=== PATIENT | female | born 1990 | race American Indian/Alaskan Native ===

== ENCOUNTER 2020-01-02 14:29 | Emergency (ER) | payer SELFPAY ==
--- NOTE | 2020-01-02 16:42 | Emergency Department Report ---
<KARINA ODOM - Last Filed: 01/03/20 10:39> ED General Adult HPI - General Chief complaint: Psych Stated complaint: MH EVAL Time Seen by Provider: 01/02/20 16:16 - Related Data Previous Rx's Medication Instructions Recorded Last Taken Type FLUoxetine [PROzac] 20 mg PO QDAY #30 capsule 01/03/20 Unknown Rx Mirtazapine [Remeron 15mg TAB] 15 mg PO HS #30 tablet 01/03/20 Unknown Rx Allergies Allergy/AdvReac Type Severity Reaction Status Date / Time No Known Allergies Allergy Unverified 01/02/20 14:33 ED Past Medical Hx - Medications Home Medications: Home Medications Medication Instructions Recorded Confirmed Last Taken Type FLUoxetine [PROzac] 20 mg PO QDAY #30 capsule 01/03/20 Unknown Rx Mirtazapine [Remeron 15mg TAB] 15 mg PO HS #30 tablet 01/03/20 Unknown Rx ED Medical Decision Making - Lab Data Result diagrams: 01/02/20 16:49 01/02/20 16:49 - Medical Decision Making Patient was seen by her psychiatrist Dr. Juarez and his 1013 is been rescinded. Medications have been recommended. Patient is expressing no homicidal suicidal ideations at this time and likely is just having issues with depression. ED Disposition Clinical Impression: Medical clearance for psychiatric admission, Depressed affect Disposition: DC-01 TO HOME OR SELFCARE Is pt being admited?: No Does the pt Need Aspirin: No Condition: Good Instructions: Depression (ED) Prescriptions: FLUoxetine [PROzac] 20 mg PO QDAY #30 capsule Mirtazapine [Remeron 15mg TAB] 15 mg PO HS #30 tablet Referrals: PRIMARY CARE, [Primary Care Provider] - 3-5 Days Time of Disposition: 10:41 <THUY LIU - Last Filed: 01/03/20 17:22> ED General Adult HPI - General Source: patient, RN notes reviewed Mode of arrival: Ambulatory Limitations: No Limitations - History of Present Illness Initial comments: The patient states that she has no risk factors for coronavirus. Given the entire history and physical examination, I am biomedical photographer and escorted by ER outdoor emergency care technician Eli The patient is a 29-year-old female. She states that she is not . She presents to the emergency room today with a complaint of painless request for mental health evaluation. She states "I just do not want to be here." She does not endorse overdose. She personally does not have access to guns or to firearms. The patient states she has been feeling like this for months and 3 years. Her symptoms not acutely worsened or different today. She is not experiencing hallucinations. She does not want to harm other people. She consumes marijuana on a frequent basis, but denies ingestion of other recreational drugs. She states that her symptoms of emotional lassitude have been constant for months and years. She does not describe exacerbating, relieving factors. -: week(s), month(s), year(s) Consistency: constant Improves with: other Worsens with: other ED Review of Systems ROS: Stated complaint: MH EVAL Other details as noted in HPI Constitutional: denies: fever Eyes: denies: eye discharge ENT: denies: epistaxis, congestion Respiratory: denies: cough Cardiovascular: denies: syncope Gastrointestinal: denies: abdominal pain Genitourinary: denies: dysuria Musculoskeletal: denies: back pain Skin: as per HPI Neurological: as per HPI Psychiatric: as per HPI. denies: homicidal thoughts Hematological/Lymphatic: as per HPI ED Past Medical Hx - Past Medical History Hx Asthma: Yes - Surgical History Past Surgical History?: No - Social History Smoking Status: Current Every Day Smoker Substance Use Type: Alcohol ED Physical Exam - General Limitations: No Limitations General appearance: alert, in no apparent distress - Head Head exam: Present: atraumatic, normocephalic - Eye Eye exam: Present: normal appearance, EOMI. Absent: nystagmus - ENT ENT exam: Present: normal exam, normal orophraynx, mucous membranes moist, normal external ear exam - Neck Neck exam: Present: normal inspection, full ROM. Absent: tenderness, meningismus - Respiratory Respiratory exam: Present: normal lung sounds bilaterally. Absent: respiratory distress - Cardiovascular Cardiovascular Exam: Present: regular rate, normal rhythm, normal heart sounds. Absent: bradycardia, tachycardia, irregular rhythm, systolic murmur, diastolic murmur, rubs, gallop - GI/Abdominal GI/Abdominal exam: Present: soft, normal bowel sounds. Absent: distended, tenderness, guarding, rebound, rigid, pulsatile mass - Extremities Exam Extremities exam: Present: normal inspection, full ROM. Absent: pedal edema, calf tenderness - Back Exam Back exam: Present: normal inspection, full ROM. Absent: tenderness, CVA tenderness (R), CVA tenderness (L), paraspinal tenderness, vertebral tenderness - Neurological Exam Neurological exam: Present: alert, oriented X3 - Psychiatric Psychiatric exam: Present: depressed, anxious. Absent: homicidal ideation - Skin Skin exam: Present: warm, dry, intact, normal color. Absent: rash ED Course Vital Signs 01/02/20 01/02/20 01/02/20 14:33 16:30 20:20 Temperature 97.5 F L 98.7 F Pulse Rate 101 H 84 Respiratory 20 16 16 Rate Blood Pressure 147/81 Blood Pressure 123/80 [Left] O2 Sat by Pulse 99 84 Oximetry 01/03/20 01/03/20 01/03/20 02:14 08:08 11:07 Temperature 98.3 F 98.9 F Pulse Rate 60 90 Respiratory 16 15 18 Rate Blood Pressure Blood Pressure 118/79 127/92 [Left] O2 Sat by Pulse 99 100 Oximetry - Reevaluation(s) Reevaluation #1: 01/02/20 17:05 Differential diagnosis, including but not limited to: Mood disorder, dysthymia, requesting mental health evaluation Assessment and plan: 29-year-old female, who is clinically sober at this time, GCS of 15, with no physical pain or acute medical complaint, presenting with a primary request for psychiatric intervention/therapy. The patient has been feeling dysthymic for months and for years, and states that for "years" she has "not wanted to be here." Her symptoms are not necessarily different today. The patient is calm and cooperative. Screening laboratory studies ordered. Psyc hiatric consultation ordered. Reevaluation #2: 01/02/20 17:51 Laboratory studies unremarkable for emergent condition at this time as expected. At the moment, the patient does not appear to have an immediate medical contraindication to psychiatric admission, evaluation, and consultation. If psychiatric team recommends outpatient follow-up as I anticipate, patient is s uitable for discharge medically. Reevaluation #3: 01/02/20 20:18 Patient pending formal psychiatric evaluation tomorrow morning, as per the following documentation by the mental health green material value added assessor: 01/02/20 20:19 Recommendations: Remote Sensing Technician briefed case with attending psychiatrist Dr. Juarez, who confirmed that psych consult will be completed tomorrow, 01/02. ED Medical Decision Making - Lab Data Result diagrams: 01/02/20 16:49 01/02/20 16:49 Vital Signs 01/02/20 01/02/20 14:33 16:30 Temperature 97.5 F L Pulse Rate 101 H Respiratory 20 16 Rate Blood Pressure 147/81 O2 Sat by Pulse 99 Oximetry Lab Results 01/02/20 Range/Units 16:49 WBC 8.6 (4.5-11.0) K/mm3 RBC 4.45 (3.65-5.03) M/mm3 Hgb 13.4 (10.1-14.3) gm/dl Hct 39.9 (30.3-42.9) % MCV 90 (79-97) fl MCH 30 (28-32) pg MCHC 33 (30-34) % RDW 13.8 (13.2-15.2) % Plt Count 224 (140-440) K/mm3 Vital Signs 01/02/20 01/02/20 14:33 16:30 Temperature 97.5 F L Pulse Rate 101 H Respiratory 20 16 Rate Blood Pressure 147/81 O2 Sat by Pulse 99 Oximetry Lab Results 01/02/20 01/02/20 01/02/20 Range/Units 16:49 16:49 16:49 WBC 8.6 (4.5-11.0) K/mm3 RBC 4.45 (3.65-5.03) M/mm3 Hgb 13.4 (10.1-14.3) gm/dl Hct 39.9 (30.3-42.9) % MCV 90 (79-97) fl MCH 30 (28-32) pg MCHC 33 (30-34) % RDW 13.8 (13.2-15.2) % Plt Count 224 (140-440) K/mm3 Sodium 140 (137-145) mmol/L Potassium 3.6 (3.6-5.0) mmol/L Chloride 102.4 (98-107) mmol/L Carbon Dioxide 23 (22-30) mmol/L Anion Gap 18 mmol/L BUN 13 (7-17) mg/dL Creatinine 0.8 (0.7-1.2) mg/dL Estimated GFR > 60 ml/min BUN/Creatinine Ratio 16 % Glucose 84 (65-100) mg/dL Calcium 10.2 (8.4-10.2) mg/dL Magnesium 2.10 (1.7-2.3) mg/dL Total Bilirubin 0.40 (0.1-1.2) mg/dL AST 17 (5-40) units/L ALT 7 (7-56) units/L Alkaline Phosphatase 60 (35-129) units/L Total Creatine Kinase 79 (30-135) units/L Total Protein 8.0 (6.3-8.2) g/dL Albumin 4.6 (3.9-5) g/dL Albumin/Globulin Ratio 1.4 % HCG, Quant < 2 (0-4) mIU/mL Urine Color (Yellow) Urine Turbidity (Clear) Urine pH (5.0-7.0) Ur Specific [place] (1.003-1.030) Urine Protein (Negative) mg/dL Urine Glucose (UA) (Negative) mg/dL Urine Ketones (Negative) mg/dL Urine Blood (Negative) Urine Nitrite (Negative) Urine Bilirubin (Negative) Urine Urobilinogen (<2.0) mg/dL Ur Leukocyte Esterase (Negative) Urine WBC (Auto) (0.0-6.0) /HPF Urine RBC (Auto) (0.0-6.0) /HPF U Epithel Cells (Auto) (0-13.0) /HPF Urine Mucus /HPF Salicylates (2.8-20.0) mg/dL Urine Opiates Screen Urine Methadone Screen Acetaminophen (10.0-30.0) ug/mL Ur Barbiturates Screen Ur Phencyclidine Scrn Ur Amphetamines Screen U Benzodiazepines Scrn Urine Cocaine Screen U Marijuana (THC) Screen Plasma/Serum Alcohol (0-0.07) % 01/02/20 01/02/20 01/02/20 Range/Units 16:49 16:49 16:49 WBC (4.5-11.0) K/mm3 RBC (3.65-5.03) M/mm3 Hgb (10.1-14.3) gm/dl Hct (30.3-42.9) % MCV (79-97) fl MCH (28-32) pg MCHC (30-34) % RDW (13.2-15.2) % Plt Count (140-440) K/mm3 Sodium (137-145) mmol/L Potassium (3.6-5.0) mmol/L Chloride (98-107) mmol/L Carbon Dioxide (22-30) mmol/L Anion Gap mmol/L BUN (7-17) mg/dL Creatinine (0.7-1.2) mg/dL Estimated GFR ml/min BUN/Creatinine Ratio % Glucose (65-100) mg/dL Calcium (8.4-10.2) mg/dL Magnesium (1.7-2.3) mg/dL Total Bilirubin (0.1-1.2) mg/dL AST (5-40) units/L ALT (7-56) units/L Alkaline Phosphatase (35-129) units/L Total Creatine Kinase (30-135) units/L Total Protein (6.3-8.2) g/dL Albumin (3.9-5) g/dL Albumin/Globulin Ratio % HCG, Quant (0-4) mIU/mL Urine Color (Yellow) Urine Turbidity (Clear) Urine pH (5.0-7.0) Ur Specific [place] (1.003-1.030) Urine Protein (Negative) mg/dL Urine Glucose (UA) (Negative) mg/dL Urine Ketones (Negative) mg/dL Urine Blood (Negative) Urine Nitrite (Negative) Urine Bilirubin (Negative) Urine Urobilinogen (<2.0) mg/dL Ur Leukocyte Esterase (Negative) Urine WBC (Auto) (0.0-6.0) /HPF Urine RBC (Auto) (0.0-6.0) /HPF U Epithel Cells (Auto) (0-13.0) /HPF Urine Mucus /HPF Salicylates < 0.3 L (2.8-20.0) mg/dL Urine Opiates Screen Urine Methadone Screen Acetaminophen < 5.0 L (10.0-30.0) ug/mL Ur Barbiturates Screen Ur Phencyclidine Scrn Ur Amphetamines Screen U Benzodiazepines Scrn Urine Cocaine Screen U Marijuana (THC) Screen Plasma/Serum Alcohol < 0.01 (0-0.07) % 01/02/20 01/02/20 Range/Units 16:52 16:52 WBC (4.5-11.0) K/mm3 RBC (3.65-5.03) M/mm3 Hgb (10.1-14.3) gm/dl Hct (30.3-42.9) % MCV (79-97) fl MCH (28-32) pg MCHC (30-34) % RDW (13.2-15.2) % Plt Count (140-440) K/mm3 Sodium (137-145) mmol/L Potassium (3.6-5.0) mmol/L Chloride (98-107) mmol/L Carbon Dioxide (22-30) mmol/L Anion Gap mmol/L BUN (7-17) mg/dL Creatinine (0.7-1.2) mg/dL Estimated GFR ml/min BUN/Creatinine Ratio % Glucose (65-100) mg/dL Calcium (8.4-10.2) mg/dL Magnesium (1.7-2.3) mg/dL Total Bilirubin (0.1-1.2) mg/dL AST (5-40) units/L ALT (7-56) units/L Alkaline Phosphatase (35-129) units/L Total Creatine Kinase (30-135) units/L Total Protein (6.3-8.2) g/dL Albumin (3.9-5) g/dL Albumin/Globulin Ratio % HCG, Quant (0-4) mIU/mL Urine Color Yellow (Yellow) Urine Turbidity Clear (Clear) Urine pH 6.0 (5.0-7.0) Ur Specific [place] 1.025 (1.003-1.030) Urine Protein 30 mg/dl (Negative) mg/dL Urine Glucose (UA) Neg (Negative) mg/dL Urine Ketones Tr (Negative) mg/dL Urine Blood Mod (Negative) Urine Nitrite Neg (Negative) Urine Bilirubin Neg (Negative) Urine Urobilinogen 4.0 (<2.0) mg/dL Ur Leukocyte Esterase Neg (Negative) Urine WBC (Auto) 5.0 (0.0-6.0) /HPF Urine RBC (Auto) 85.0 (0.0-6.0) /HPF U Epithel Cells (Auto) < 1.0 (0-13.0) /HPF Urine Mucus 3+ /HPF Salicylates (2.8-20.0) mg/dL Urine Opiates Screen Presumptive negative Urine Methadone Screen Presumptive negative Acetaminophen (10.0-30.0) ug/mL Ur Barbiturates Screen Presumptive negative Ur Phencyclidine Scrn Presumptive negative Ur Amphetamines Screen Presumptive negative U Benzodiazepines Scrn Presumptive negative Urine Cocaine Screen Presumptive negative U Marijuana (THC) Screen Presumptive positive Plasma/Serum Alcohol (0-0.07) % Critical care attestation.: If time is entered above; I have spent that time in minutes in the direct care of this critically ill patient, excluding procedure time. ED Disposition Is pt being admited?: No Does the pt Need Aspirin: No
[2020-01-02 17:05] LABS: Hematocrit 39.9 % (30.3-42.9); Hemoglobin 13.4 gm/dl (10.1-14.3); Mean Corpuscular HGB Conc 33 % (30-34); Mean Corpuscular Volume 90 fl (79-97); Platelet Count 224 K/mm3 (140-440); Red Blood Count 4.45 M/mm3 (3.65-5.03); Red Cell Distribution Width 13.8 % (13.2-15.2)
[2020-01-02 17:10] LABS: Bilirubin,Urine NEG (Negative); Blood,Urine MOD (Negative); Color,Urine Yellow (Yellow); Mucus,Urine 3+ /HPF
[2020-01-02 17:17] LABS: Amphetamine Screen,Urine PRESUMPTIVE NEGATIVE; Benzodiazepines Screen,Urine PRESUMPTIVE NEGATIVE; Cocaine Screen,Urine PRESUMPTIVE NEGATIVE; Methadone Screen,Urine PRESUMPTIVE NEGATIVE; Opiate Screen,Urine PRESUMPTIVE NEGATIVE
[2020-01-02 17:25] LABS: Alanine Aminotransferase 7 units/L (7-56); Albumin 4.6 g/dL (3.9-5); BUN/Creatinine Ratio 16; Blood Urea Nitrogen 13 mg/dL (7-17); Calcium 10.2 mg/dL (8.4-10.2); Hemolysis Index 6
[2020-01-02 17:28] LABS: Cannabinoid Screen,Urine PRESUMPTIVE POSITIVE
[2020-01-02 17:33] LABS: HCG Qualitative,Urine Negative (Negative)
--- NOTE | 2020-01-03 09:58 | Consultation ---
History of Present Illness - Reason for Consult Consult date: 01/03/20 Reason for consult: Psych eval - Chief Complaint Chief complaint: Depressed - History of Present Psychiatric Illness The patient is a 29yo single unemployed female with no psych history. She presents with depressed mood. Per ED provider's note: The patient is a 29-year-old female. She states that she is not . She presents to the emergency room today with a complaint of painless request for mental health evaluation. She states "I just do not want to be here." She does not endorse overdose. She personally does not have access to guns or to firearms. The patient states she has been feeling like this for months and 3 years. Her symptoms not acutely worsened or different today. She is not experiencing hallucinations. She does not want to harm other people. She consumes marijuana on a frequent basis, but denies ingestion of other recreational drugs. In my interview with the patient this morning, she reports feeling depressed for years, she has decreased appetite and decreased sleep. Patient denies panic attacks, recurrent nightmares or flashbacks. Patient denies symptoms suggestive of OCD or PTSD. Patient denies hallucinations, paranoia, thought interference and no features suggestive of hypomania or nathaniel. She completely denies suicidal or homicidal thoughts. PAST PSYCHIATRIC HISTORY: None PAST MEDICAL HISTORY: None Family Psychiatric History Mother has bipolar, per patient SOCIAL HISTORY Marital Status: Single Living Arrangements: alone Employment Status: unemployed Access to guns/weapons: Patient denies Education: High School History of Abuse: Patient denies Legal History: Patient denies ROS: Constitutional: Negative for weight loss ENT: Negative for stridor Respiratory: Negative for cough or hemoptysis All other systems reviewed and are negative MENTAL STATUS General Appearance and Behavior: age appropriate, good eye contact, cooperative with questioning and polite Cooperation: Cooperative Psychomotor Behavior: within normal limits Mood: depressed Affect and affective range: Congruent with stated mood Thought Process: Fluent/Logical and Goal-directed Thought Content: Within reality Speech: Normal volume and Regular rate and rhythm Intellectual Functioning Average Suicidal Ideation: Denies SI Homicidal Ideation: Denies HI Impulse Control: intact Insight and Judgment: normal insight and judgment Memory: Normal Attention: Normal Orientation: alert and oriented Diagnosis: Major depressive disorder single episode moderate RECOMMENDATIONS MEDICATIONS: Fluoxetine 20mg qd and Remeron 15mg qhs Risks, benefits and alternatives of medications discussed with the patient, questions answered and consent obtained from patient. PSYCHOTHERAPY: Supportive psychotherapy provided MEDICAL: Per primary team RADIATION / CHEMISTRY TECHNICIAN: No DISPOSITION: Per primary team, no indication for acute inpatient psychiatric hospitalization at this time LEGAL STATUS: 1013 rescinded FOLLOW-UP: Will sign off Medications and Allergies Allergies Allergy/AdvReac Type Severity Reaction Status Date / Time No Known Allergies Allergy Unverified 01/02/20 14:33 Mental Status Exam - Vital signs Last Vital Signs Temp 98.3 F 01/03/20 02:14 Pulse 60 01/03/20 02:14 Resp 16 01/03/20 02:14 BP 118/79 01/03/20 02:14 Pulse Ox 99 01/03/20 02:14 Results Result Diagrams: 01/02/20 16:49 01/02/20 16:49 Abnormal lab results 01/02/20 01/02/20 Range/Units 16:49 16:49 Salicylates < 0.3 L (2.8-20.0) mg/dL Acetaminophen < 5.0 L (10.0-30.0) ug/mL All other labs normal.
[2020-01-03] MEDS ORDERED: FLUoxetine 20 MG CAP PO SCH (11:00)
[2020-01-03 11:08] VITALS: BP 127/92
[2020-01-03] MEDS ORDERED: MIRTAZAPINE 15 MG TAB PO SCH (22:00)
== END 2020-01-03 11:13 | disposition home or self-care (01) ==
LOC: EEVIPCON 14:29 → ED 14:29
DX: F32.89 Other specified depressive episodes (principal); J45.909 Unspecified asthma, uncomplicated; F17.200 Nicotine dependence, unspecified, uncomplicated; Z79.899 Other long term (current) drug therapy
CPT/HCPCS: 36415; 80053; 80307; 80320; 81001; 81025; 82550; 83735; 84702; 85027; G0480